=== PATIENT | female | born 1960 | race Caucasian/White ===

== ENCOUNTER 2021-10-25 22:45 | Emergency (ER) | payer SELFPAY ==
[~2021-10-25] VITALS: Ht 152.4 cm; Wt 44.0 kg
[2021-10-25 22:48] VITALS: BP 155/82
[2021-10-25] MEDS ORDERED: DOXY-181 PO (23:07)
--- NOTE | 2021-10-25 23:08 | PHYS DOC ---
Past Medical History Additional Past Medical Histor: AMNESIA Past Surgical History: No Surgical History Smoking Status: Never Smoker Alcohol Use: None General Adult EDM: Chief Complaint: OTHER COMPLAINTS HPI: HPI: Patient is a 61 year old female who presents with cracks and redness to her hands. States that she sustained abrasions while "trying to clean up the streets of [place]." States that she has had some increasing redness over the abrasion on the back of her right hand. She does not have gloves, and states when she is outside the window it makes her cuts and abrasions much more painful. She is currently homeless, and was trying to get to a care home earlier tonight. She denies alcohol, or drug use. Daily cigarette smoker. Review of Systems: Review of Systems: Constitutional: Denies fever or chills. [] HENT: Denies nasal congestion or sore throat. [] Respiratory: Denies cough or shortness of breath. [] Cardiovascular: Denies chest pain or edema. [] GI: Denies abdominal pain, nausea, vomiting, bloody stools or diarrhea. [] Musculoskeletal: Denies back pain or joint pain. [] Integument: reports hand redness/abrasions Neurologic: Denies headache, focal weakness or sensory changes. [] Heart Score: C/O Chest Pain: No Allergies: Allergies: Allergies Coded Allergies Type Severity Reaction Last Updated Verified No Known Drug Allergies 10/25/21 No Physical Exam: PE: Constitutional: Well developed, well nourished, no acute distress, non-toxic appearance. [] HENT: Normocephalic, atraumatic, bilateral external ears normal, oropharynx moist, no oral exudates, nose normal. [] Eyes: PERRLA, EOMI, conjunctiva normal, no discharge. [] Neck: Normal range of motion, no tenderness, supple, no stridor. [] Cardiovascular:Heart rate regular rhythm, no murmur [] Lungs & Thorax: Bilateral breath sounds clear to auscultation [] Abdomen: Bowel sounds normal, soft, no tenderness, no masses, no pulsatile masses. [] Skin: Dry and cracked hands bilaterally, 1 skin crack on the dorsum of the right hand appears to have some spreading erythema surrounding it. No purulent discharge. No janeway lesions, osler nodes, or splinter hemorrhages. Extremities: See note on skin exam above. Normal range of motion and distal nerve motor component and sensory in the hands bilaterally. Neurologic: Alert and oriented X 3, normal motor function, normal sensory function, no focal deficits noted. [] Current Patient Data: Vital Signs: Vital Signs Date Time Temp Pulse Resp B/P (MAP) Pulse Ox O2 Delivery O2 Flow Rate FiO2 10/25/21 22:48 97.8 102 16 155/82 (106) 97 Room Air 97.8 EKG: EKG: [] Radiology/Procedures: Radiology/Procedures: [] Course & Med Decision Making: Course & Med Decision Making Pertinent Labs and Imaging studies reviewed. (See chart for details) Patient a 61-year-old female who is homeless who presents with several abrasions to her hands, that she is concerned are infected. 1 has some mild spreading redness near it, will prescribe doxycycline. No evidence of abscess or more serious infection. Dragon Disclaimer: Dragon Disclaimer: This electronic medical record was generated, in whole or in part, using a voice recognition dictation system. Departure Departure Impression: Primary Impression: Cellulitis of hand Disposition: HOME / SELF CARE / HOMELESS Condition: STABLE Scripts Doxycycline Monohydrate (DOXYCYCLINE MONOHYDRATE) 100 Mg Capsule 1 CAP PO BID for 7 Days, #14 CAP 0 Refills Prov: ROBY LANG MD 10/25/21 ROBY LANG MD Oct 25, 2021 23:08
[2021-10-25] MEDS ORDERED: DOXYCYCLINE HYCLATE 100 MG TABLET PO ONE (23:30)
== END 2021-10-26 00:10 | disposition home or self-care (01) ==
LOC: ER 22:45 → EDBD 22:45 → ER 10-26 00:10
DX: L03.113 Cellulitis of right upper limb (principal)
CPT/HCPCS: 99283